=== PATIENT | male | born 1960 | race Caucasian/White ===

== ENCOUNTER 2021-07-04 07:35 | Day surgery (SDC) | payer BC ==
[~2021-07-04] VITALS: Ht 177.8 cm; Wt 92.4 kg
[2021-07-04] MEDS ORDERED: TEKTURNA150 MG PO (09:30)
[2021-07-04] MEDS ORDERED: NORVASC 5MG5 MG/TAB PO (09:30)
[2021-07-04] MEDS ORDERED: THE MEDICINE S200 M2 PO (09:31)
[2021-07-04 09:44] VITALS: BP 147/77; PULSE 56; TEMP 97.3
--- NOTE | 2021-07-04 10:34 | NUR ---
Initial visit; Patient and his thanked Pharmacy Technician Program Director for looking in on him and offering prayer and God's blessings for a successful surgical procedure and rapid and thorough healing. Patient and his spoke with Pharmacy Technician Program Director about their wonderful little one room [employer] by [employer] and invited Pharmacy Technician Program Director to visit. What an special invitation.
[2021-07-04] MEDS ORDERED: NORCO 325 MG-51 TAB PO (13:51)
[2021-07-04 14:10] VITALS: BP 120/63; PULSE 57; TEMP 97.6
--- NOTE | 2021-07-04 14:10 | NUR ---
PT TO BAY 1 PER CART FROM PACU. RECEIVED REPORT FROM KAREN POLANCO. VS OBTAINED. CALL LIGHT WITHIN REACH. PT TOLERATING ICE CHIPS AND WATER AT THIS TIME. WILL CONTINUE TO MONITOR PT. SMALL AMOUNT OF DRAINAGE NOTED AND MARKED DURING REPORT FROM KAREN POLANCO
[2021-07-04 14:25] VITALS: BP 125/63; PULSE 57
--- NOTE | 2021-07-04 14:25 | NUR ---
PT TOLERATING WATER AND MUFFIN WITHOUT DIFFICULTY. PT DENIES ANY DISCOMFORT AT THIST TIME. WILL CONTINUE TO MONITOR. CALL LIGHT WITHIN REACH.
[2021-07-04 14:40] VITALS: BP 119/64; PULSE 59
--- NOTE | 2021-07-04 14:40 | NUR ---
PT CONTINUES TO DENY ANY ADDITIONAL NEEDS AT THIS TIME. SHADOWING NOTED AND MARKED. NO SIGNIFICANT INCREASE NOTED AT THIS TIME. WILL CONTINUE TO MONITOR.
--- NOTE | 2021-07-04 15:00 | NUR ---
IV DC'D AT THIS TIME. TOLERATED WELL.
--- NOTE | 2021-07-04 15:10 | NUR ---
DISCHARGE EDUCATION COMPLETED WITH PT AND HIS . VERBALIZED UNDERSTANDING OF HOME AND FOLLOW UP CARE. ALL QUESTIONS ANSWERED. DISCHARGE PAPERWORK GIVEN TO PT.
--- NOTE | 2021-07-04 15:20 | NUR ---
PT OFF UNIT PER WHEELCHAIR. PT DISCHARGE TO HOME WITH PER PERSONAL VEHICLE.
[2021-07-04 17:24] VITALS: BP 129/70; PULSE 59; TEMP 97.4
== END 2021-07-04 15:20 | disposition home or self-care (01) ==
LOC: SDCO 07:35
DX: C43.62 Malignant melanoma of left upper limb, including shoulder (principal)
CPT/HCPCS: A9520; J0690; J1100; J2405; J2704; J3010; J7120